=== PATIENT | male | born 1990 | race Caucasian/White ===

== ENCOUNTER → 2020-03-05 12:24 | Outpatient (CLI) | payer OTHER, SELFPAY ==
[2017-08-28 21:11] VITALS: BMI 23.1
== END ==
PROVIDERS: PCP Family Medicine; Referring Provider Family Medicine; Visit Provider Family Medicine
DX: N41.9 Inflammatory disease of prostate, unspecified (principal)
CPT/HCPCS: 87086

== ENCOUNTER 2020-08-25 07:29 | Emergency (ER) | payer OTHER, SELFPAY ==
[2020-08-25 07:30] VITALS: BP 119/100; PULSE 94; RESP 18; TEMP 36.6; O2SAT 100; BMI 27.3
--- NOTE | 2020-08-25 07:43 | CT_ITS ---
STUDY: CT ABDOMEN AND PELVIS WITHOUT CONTRAST REASON FOR EXAM: Male, 30 years old. RT FLANK PAIN RADIATION DOSAGE (If Supplied By Facility): CTDIvol = ( 6.63 ) mGy, DLP = ( 326.24 ) mGycm TECHNIQUE: Transaxial images were obtained from the dome of the diaphragm to the symphysis pubis without oral contrast, and without intravenous contrast. Sagittal and coronal images were reconstructed. Individualized dose optimization techniques were used for this CT. COMPARISON: None. FINDINGS: The visualized lung bases are unremarkable. The visualized portions of the heart are within normal limits. Normal liver. Normal gallbladder and extrahepatic biliary system. Normal spleen. Normal pancreas. Normal bilateral adrenal glands. Bilateral tiny nonobstructing renal stones. No hydronephrosis, ureteral stone, ureteral dilatation. Normal visualized stomach. Normal small intestine. Normal colon. The appendix is visualized and appears normal. Normal abdominal aorta. Normal inferior vena cava. Normal retroperitoneum. Normal urinary bladder. There is a small umbilical hernia containing fat. Normal osseous structures. CT/Abdomen/Pelvis without Cont IMPRESSION: Bilateral tiny nonobstructing renal stones. Electronically Signed: Junior Forrester MD at 8:13 EST Tel , Service support ,
--- NOTE | 2020-08-25 07:44 | ED.DCSUM_ITS ---
- ER Visit Summary Date of Service: 08/25/20 Chief Complaint: [Abdominal pain] History of Present Illness: The patient is a 30 M [presents to the emergency department complaint of sudden onset of abdominal pain that started around 6:30 AM this morning while driving to work. Patient states that he felt like the pain started at his bellybutton and radiated around the right side of his back. Once he got to work he felt like he needed have a bowel movement and went to the bathroom where he began feeling very sweaty and diaphoretic. Patient ended up having one episode of vomiting he thinks related to the pain. Pain was a 10 out of 10 however now it has backed off to about a 5 or 6 out of 10. Patient does have history of kidney stones 10 years ago. He denies any recent illness. Denies any fever. He does also relate that he has had some constipation issues off and on for the last week or so. He denies any change in medication or change in his diet. Patient denies blood in stool or black tarry stool. She has not had any prior abdominal surgeries.] Physical Examination: [HEENT-PERRLA, EOMI. Cranial nerves II through XII grossly intact. TMs clear. Mucous membranes moist. No adenopathy. Cardiovascular-regular rate and rhythm without murmur or ectopy Lungs-clear to auscultation, chest wall stable without crepitus or subcu emphysema Abdomen-normoactive bowel sounds, soft. Patient does have tenderness to palpation over the right lower quadrant. Patient has CVA tenderness on the right. There is no rebound, rigidity, or peritoneal signs. Extremities-intact ?4, normal range of motion, normal pulses, atraumatic] Test Results: [CBC with differential obtained was normal. Chemistries normal. Urinalysis had greater than 100 RBCs without signs of infection. CT flank showed bilateral small renal calculi without evidence of obstruction. Appendix was visualized and was normal.] Emergency Department Course and Treatment: [IV line established on arrival. Patient was given Toradol 30 mg IV. Patient had good pain relief with that and at this point his pain is minimal. Prior to discharge patient did ask me for a Covid test states that he will need one for work given that his girlfriend tested positive this morning. Patient has been asymptomatic.] Suspect patient may have passed a kidney stone given the blood in the urine. Treatment Plan: [We will order a send out PCR Covid test. Patient advised to use ibuprofen for discomfort and does not anything stronger for pain. Patient to follow-up with his primary care physician in 3 to 5 days. Patient to return if worsening pain, fever, vomiting, or condition should worsen anyway.] Disposition: [Discharged home in stable condition] Impression: [Flank pain-suspect passed kidney stone] This note was generated with [employer] dictation software. It may contain incorrect words, spelling, and punctuation that were not noted in review of the chart prior to signing ED Disposition - Plan for ED Patient: Referrals: Aspen Hair MD [Primary Care Provider] -
[2020-08-25 07:46] LABS: Bacteria 0 SEEN /hpf (None Seen); Squamous Epithelial Cells - UA 0 SEEN /hpf (0-5); White Blood Cells 0 SEEN /hpf (0-5)
[2020-08-25] MEDS: 0.9% Normal Saline 1,000 ML 125 ML IV (07:50)
[2020-08-25] MEDS: Ketorolac 30 MG/ML Syringe IV (07:50)
[2020-08-25 07:58] LABS: Color, Urine Yellow (Yellow); Glucose, Dipstick NEGATIVE (Normal); Ketone-Dipstick 5 mg/dl (Negative); Leukocyte Esterase-Dipstick 25 /ul (Negative); Mucous, Urine 2+ /hpf (<or=2+); Nitrite-Dipstick Negative (Negative); Occult Blood-Urine 250 /ul (Negative); Protein-Dipstick 30 mg/dl (Negative); Red Blood Cells-Urine > 100 SEEN /hpf (0-5); Urine Bilirubin Dipstick Negative (Negative); Urine Clarity Cloudy (Clear); Urine Urobilinogen 1 mg/dl (Normal)
[2020-08-25 08:00] LABS: Anion Gap 5 (5-15); BUN 12 mg/dL (7-18); BUN/Creat Ratio 12.5 RATIO (10-20); Calcium,Total 8.5 mg/dL (8.5-10.1); Chloride 106 mmol/L (98-107); Creatinine, Serum 0.96 mg/dL (0.70-1.30); EST Glomerular Filtration Rate 99 mL/min (>60); Est Glom Filt Rate - Afr Amer 119 mL/min (>60); Estimated Creatinine Clearance 106.15 ml/min; Glucose 131 mg/dL (74-106); Sodium Level 141 mmol/L (136-145)
[2020-08-25 08:02] LABS: Absolute Lymphocyte Count 2.08 X10^3/uL (0.83-4.51); Absolute Neutrophil Count 4.3 X10^3/uL (2.0-7.7); Basophil# 0.03 X10^3/uL; Basophil% 0.4 % (0-1); Eosinophil# 0.09 X10^3/uL; Eosinophils% 1.3 % (0-5); Hematocrit 47.4 % (40-54); Hemoglobin 16.3 g/dL (13.0-16.5); Lymphocyte # 2.08 X10^3/ul (4.0); Lymphocyte % 29.4 % (19-41); Mean Corp Hgb Conc 34.4 g/dL (32-36); Mean Corpuscular Hgb 31.8 pg (27.0-32.0); Mean Corpuscular Volume 92.4 fL (80-94); Mean Platelet Vol. 10.2 fl (6.2-12.0); Monocyte# 0.59 X10^3/uL; Monocyte% 8.3 % (0-10); NRBC Flagged by Analyzer 0 % (0-5); Neutrophil # 4.26 X10^3/uL (2.7-7.7); Neutrophil % 60.3 % (47-70); Platelet Count 176 K/mm3 (150-450); RBC Distribution Width CV 11.7 % (11.6-14.6); RBC Distribution Width SD 39.6 fl (35.1-43.9); Red Blood Count 5.13 M/mm3 (4.6-6.2); White Blood Count 7.1 K/mm3 (4.4-11.0)
--- NOTE | 2020-08-25 08:55 | ED.DEP ---
ED Disposition - Plan for ED Patient: Instructions: ED Flank Pain, Uncertain Cause Referrals: Aspen Hair MD [Primary Care Provider] - 3-5 Days
[2020-08-25 09:03] VITALS: BP 128/84; PULSE 66; RESP 16; O2SAT 100
--- NOTE | 2020-08-25 09:04 | ED.RN ---
IV DC'E, CATHETER INTACT, SMALL GAUZE DRESSING PLACED. DISCHARGE INSTRUCTIONS GIVEN TO AND REVIEWED WITH PATIENT, PATIENT DENIES QUESTIONS OR CONCERNS AND VOICES UNDERSTANDING OF DISCHARGE INSTRUCTIONS. PT AMBULATES OUT OF ROOM WITHOUT DIFFICULTY.
== END 2020-08-25 09:04 | disposition home or self-care (01) ==
LOC: ED 08:13
PROVIDERS: Emergency Provider Emergency Medicine; PCP Family Medicine
DX: R10.9 Unspecified abdominal pain (principal); F17.200 Nicotine dependence, unspecified, uncomplicated; Z87.442 Personal history of urinary calculi
CPT/HCPCS: 74176; 80048; 81001; 85025; 87635; 96374; 99283; J7030; U0005; A4216; U0003

== ENCOUNTER → 2025-02-03 | Outpatient (CLI) | payer OTHER, SELFPAY ==
--- NOTE | 2025-02-03 16:42 | RAD_ITS ---
PROCEDURE: SHOULDER MIN 2 VIEWS 02/03/2025 REASON FOR EXAM: RIGHT SHOULDER TECHNIQUE: SHOULDER MIN 2 VIEWS COMPARISON: None. FINDINGS: Normal glenohumeral articulation. Normal acromioclavicular joint. Normal acromion. Normal humeral head and visualized proximal humerus. Normal visualized scapula. There is no demonstrated soft tissue abnormality. Normal visualized pulmonary apex. RAD/Shoulder min 2 Views IMPRESSION: No evidence for acute abnormality. Reading [facility]
== END | disposition home or self-care (01) ==
LOC: MTRAD 16:42
PROVIDERS: PCP Family Medicine; Referring Provider Family Medicine; Visit Provider Family Medicine
DX: M25.511 Pain in right shoulder (principal)
CPT/HCPCS: 73030

== ENCOUNTER → 2025-02-14 | Outpatient (CLI) | payer OTHER, SELFPAY ==
--- OUTSIDE RECORDS SUMMARY | 2025-02-14 13:23 | XMS RPT_ITS | CCD ---
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 Name Role Phone Beatrice ROMO, Geovanny Primary Care Provider [phone] Beatrice ROMO, Geovanny Attending Provider [phone] Geovanny Barron MD Referring Provider [phone] Kirsten Lino Attending Unavailable Aspen Hair Referring Unavailable Aspen Hair Primary Care Unavailable Geovanny Barron Primary Care Unavailable Geovanny Barron Referring Unavailable Geovanny Barron Attending Unavailable Geovanny Barron Attending Unavailable Beatrice, Geovanny Primary Care Unavailable Geovanny Barron Referring Unavailable Problems Active Problems Problem Classification Problem Date Documented Da te Episodic/Chronic Other non-traumatic joint disorders (2 sources) Pain in right shoulder; Translations: [Pain in right shoulder] Onset: 02-09-2025 Episodic Other skin disorders (1 source) Cyst of scalp; Translations: [Follicular cyst of the skin and subcutaneous tissue, unspecified] 04-08-2024 Episodic Past or Other Problems Problem Classification Problem Date Documented Da te Episodic/Chronic Other skin disorders (1 source) Follicular cyst of the skin and subcutaneous tissue, unspecified; Translations: [Follicular cyst of the skin and subcutaneous tissue, unspecified] Onset: 05-14-2024 Episodic Superficial injury; contusion (1 source) Contusion of left middle finger without damage to nail, initial encounter; Translations: [Contusion of left middle finger without damage to nail, initial encounter] Onset: 05-04-2017 Episodic Results Test Name Value Interpretation Reference Range Facil ity Shoulder min 2 Viewson 02-03 Shoulder min 2 Views [facility] Services [address] [place], [place] [id number] Shoulder min 2 Views MR#: [id number] Acct: [id number] Name: HAILEY JARA Jr. Rep #: [id number] : 1990 M 34 From: Axel hartman MD PCP: Dr. Geovanny Barron MD Status: REG CLI Study: Shoulder min 2 Views Date of Exam: 02/03/25 Exam# [id number] Ordering Dr: Geovanny Barron MD PROCEDURE: SHOULDER MIN 2 VIEWS 02/03/2025 REASON FOR EXAM: RIGHT SHOULDER TECHNIQUE: SHOULDER MIN 2 VIEWS COMPARISON: None. FINDINGS: Normal glenohumeral articulation. Normal acromioclavicular joint. Normal acromion. Normal humeral head and visualized proximal humerus. Normal visualized scapula. There is no demonstrated soft tissue abnormality. Normal visualized pulmonary apex. RAD/Shoulder min 2 Views IMPRESSION: No evidence for acute abnormality. Reading Location: [place] [address] CC: Dr. 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 [place] [address] OFFICE VISIT Date of Service: 04/07/24 MR#: [id number] Acct: [id number] Name: HAILEY JARA JrShannon Rep #: [id number] : 1990 Provider: Dr. Kirsten dalal MD Age/Sex: 34/M Location: [facility] Status: Signed Intake Vital Signs 04/07/24 14:56 Height 5 ft 6 in Weight: 199 lb BMI 32.1 BP 133/87 H Blood Pressure Location Rt brachial Position Sitting Respiration 17 Pulse 73 Pulse Source Monitor Temp 96.5 F L Temp Source Temporal Pulse Oximetry (%) 97 Oxygen Delivery Method room air Intake Visit Reasons: SEBACEOUS CYST Chief Complaint: sebacous cyst Is patient in pain?: No Allergies No Known Allergies Allergy (Verified 04/07/24 14:58) Medications ???Medication ???Instructions ???Recorded ???Confirmed ???Type NK 08/28/17 04/07/24 History PFSH Social History (Updated 04/07/24 @ 14:56 by Nedra Quiroz) Smoking Status: Current every day smoker alcohol intake: current HPI HPI HPI: 34-year-old male presents due to scalp cyst. Patient states he has had this for a while however it has gotten larger and can be more bothersome if it happens to get bumped. Patient is interested in excision. ROS General General: No weight change, appetite, fatigue, colon cancer, breast cancer or weakness HEENT HEENT: No difficulty swallowing, eye injury, eye surgery, swollen glands or hoarseness Endo Endocrine: No thyroid disease, diabetes mellitus, thyroid cancer, Hair loss, heat intolerance or cold intolerance Skin Skin: No rash or changing moles Musc Musculoskeletal: No back problems, arthritis, rheumatoid arthritis, gout or joint pain Cardio Cardiovascular: No murmur, pacemaker, heart disease, atrial fibrillation, high blood pressure, heart attack, heart stent, palpitations, shortness of breat with exertion or chest pain Psych Psychiatric: No depression, anxiety or hearing voices Resp Respiratory: No shortness of breath, No sleep apnea, No cough, No COPD, No asthma, No emphysema and No wheezing Gastro Gastrointestinal: No abdominal pain, No nausea or vomiting, No diarrhea, No constipation, No blood in stool, No acid reflux, No hemorrhoids, No ulcers, No gallbladder problem and No black,tarry st ools [place] Hematologic: No blood thinners, No blood disorders, No bleeding, No anemia and No blood clots Neuro Neurologic: No system reviewed and no additional complaints, except as documented, No as per HPI, No abnormal gait, No abnormal hearing, No abnormal movements, No abnormal speech, No behavioral changes, No burning sensations, No confusion, No convulsions, No disequilibrium, No dizziness, No localized weakness, No frequent falls, No headache(s), No lack of coordination, No loss of vision, No memory loss, No numbness, No other visual disturbances, No radicular pain, No restless legs, No sensory deficit, No syncope, No tingling, No tremor(s), No weakness and No other Exam Const General: cooperative, healthy appearing, comfortable and no acute distress HENMT Other: Superior scalp cyst about 1.5 x 1.5 cm Neck Neck: normal visual inspection Resp Effort Inspection: normal respiratory effort Cardio Rate: regular rate GI Inspection: non-distended Palpation: soft, no guarding and nontender Skin General: no rashes or lesions noted Neuro General: patient oriented x3 Psych Affect: normal affect Office Procedures Excision and Linear Repair Procedure performed by: Kirsten Lino Informed consent given: Yes Consent signed: Yes Size of lesion (cm): 1 ( 1.5 x 1.5 x 1 cm-consistent with) Amount of lidocaine applied (mL): 3 Preparation: chlorhexidine Device used for excision: #15 blade Cutaneous deformities present: No Hemostasis: pressure ( and suture) Sutures used for cuticle layer: Yes Type: 3-0 ( horizontal 3-0 nylon mattress suture) Type: nylon Patient tolerated procedure: well Complications: No Procedure Time Out Time Out Informed consent given: Yes Consent signed: Yes Time out checklist: patient, procedure, site marked/identified, positioning of patient, supplies available, allergies confirmed and team agrees on procedure Time out staff in room: Yes Time out verified: Yes Time out date: 04/07/24 Time out time: 15:05 Assessment and Plan Assessment and Plan (1) Scalp cyst: Status: Acute Plan patient tolerated excision of scalp cyst well in office. Permanent horizontal mattress suture of 3- 0 nylon was placed for closure/help with hemostasis. Patient will return office about 7 days for removal. Patient was agreeable with plan. Kirsten Lino M.D. Pager: [phone] [facility] [address] [place] [address], [facility], [address] [facility] (more content not included)... Normal [facility] XR DIGIT 3V FRONTAL/LAT/OBL LTon 05-04-2017 XR DIGIT 3V FRONTAL/LAT/OBL LT * * *Final Report* * *DATE OF EXAM: May 04 2017 11:37AM MDX [id number] - XR DIGIT 3V FRONTAL/LAT/OBL LT / REASON: contusion of l middle finger * * * * Physician Interpretation * * * * PROCEDURE: Left 3rd fingerINDICATION: contusion of l middle finger.TECHNIQUE: XR DIGIT 3V FRONTAL/LAT/OBL LTCOMPARISON: NoneFINDINGS:No fractures or dislocations are seen. The bones, joint spaces and soft tissues are unremarkable.IMPRESSION: NegativeTranscriptionist : DORINDA Transcribe Date/Time: May 04 2017 11:39ADictated by : ROBERTA LUA MDThis examination was interpreted and the report reviewed and electronically signed by: ROBERTA LUA MD on May 04 2017 11:39AM [id number] Normal [facility] Encounters Encounter Date Encounter Type Care Provider Facility Start: 02-14-2025 ambulatory Geovanny Beatrice Facility:[facility] Start: 02-03-2025 End: 02-03-2025 ambulatory Geovanny Barron MD Work Phone: [facility] Work Phone: Start: 02-03-2025 End: 02-03-[address] Geovanny Barron MD -[facility] [place] Work Phone: Start: 02-03-2025 End: 02-03-2025 ambulatory [facility] Facility:[facility] Start: 04-07-2024 End: 04-07-2024 ambulatory [facility] Facility:[facility] Start: 05-10-2017 End: 05-10-2017 Ambulatory [facility] Start: 05-04-2017 End: 05-04-2017 Ambulatory [facility] Procedures Date Procedure Procedure Detail Performing Clinician Start: 02-03-2025 Plain X-ray of shoulder Geovanny Barron MD Work Phone: Payers Date Payer Category Payer Self-pay 2024 Self-pay [id number] Private Health Insurance [employer] [id number] Unknown ANTHEM [id number] Unknown [facility] [employer] PLAN [id number] Unknown [id number] Unknown [id number] Unknown [id number] Social History Date Type Detail Facility Start: 04-07-2024 Tobacco smoking stat us TXIS Smokes tobacco daily (finding) [facility] Start: 1990 Sex Assigned At Male [facility] Radiology Diagnostic study note 02-04-2025 Note Date & Type Note Facility 02-04-2025 Radiology Diagnostic study note [facility] Imaging Services [address] [address] Shoulder min 2 Views MR#: [id number] Acct: [id number] Name: HAILEY JARA Jr. Rep #: [id number] : 1990 M 34 From: Antwon Cardenas MD PCP: Dr. Geovanny Barron MD Status: REG CL I Study:Shoulder min 2 Views Date of Exam: 02/03/25 Exam# [id number] Ordering Dr: Emily Barron MD PROCEDURE: SHOULDER MIN 2 VIEWS 02/03/2025 REASON FOR EXAM: RIGHT SHOULDER TECHNIQUE: SHOULDER MIN 2 VIEWS COMPARISON: None. FINDINGS: Normal glenohumeral articulation. Normal acromioclavicular joint. Normal acromion. Normal humeral head and visualized proximal humerus. Normal visualized scapula. There is no demonstrated soft tissue abnormality. Normal visualized pulmonary apex. RAD/Shoulder min 2 Views IMPRESSION: No evidence for acute abnormality. Reading Location[facility] [address] CC: Dr. 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: Signed [facility] Evaluation note Note Date & Type Note Facility Evaluation note No assessment information availa ble [facility] Work Phone: Reason for referral (narrative) Note Date & Type Note Facility Reason for referral (narrative) No reason for referral information available [facility] Work Phone: Summary Purpose Family History No Family History Records FoundNo Family History Records FoundNo Family History Records Found Advance Directives No Advanced Directives Records Found Advance Directive Response Recorded Date/ Time Advance Directives No August 28, 2017 10:22pm Chief Complaint and Reason for Visit Chief Complaint Admit Date right shoulder February 03, 2025 4:40 pm Additional Source Comments (unrecognized sect ion and content) No Status Records FoundNo Status Records FoundNo Status Records Found INFORMATION SOURCE (unrecogn ized section and content) DATE CREATED AUTHOR 02/13/2018 [facility] DATE CREATED AUTHOR AUTHOR'S ORGANIZ ATION 02/13/2018 [facility] DATE CREATED AUTHOR AUTHOR'S ORGANIZ ATION 02/12/2025 [facility] Care Teams (unrecognized sec tion and content) Team Status: Active Member Role Status Dates Dr. Aspen Hair MD Family Provider Active Geovanny Barron MD Primary Care Provider Active Team Status: Inactive Member Role Status Dates Geovanny Barron MD Primary Care Provider Active St art: February 03, 2025 End: February 03, 2025 Geovanny Barron MD Attending Provider Active Start : February 03, 2025 End: February 03, 2025 Geovanny Barron MD Referring Provider Active Start : February 03, 2025 End: February 03, 2025 Goals (unrecognized section and content) Goals may be documented in a n alternate section FOR RECORDS PERTAINING TO PATIENTS WHO ARE OR HAVE BEEN ENROLLED IN A CHEMICAL DEPENDENCY/SUBSTANCEABUSE PROGRAM, SOME INFORMATION MAY BE OMITTED. This clinical summary was aggregated from multiple sources. Caution should be exercised in using it in the provision of clinical care. This summary normalizes information from multiple sources, and as a consequence, information in this document may materially change the coding, format and clinical context of patient data. In addition, data may be omitted in some cases. CLINICAL DECISIONS SHOULD BE BASED ON THE PRIMARY CLINICAL RECORDS. [employer] provides no warranty or guarantee of the accuracy or completeness of information in this document.
--- NOTE | 2025-02-14 14:00 | MRI_ITS ---
PROCEDURE: UPPER EXT JOINT ONLY(ROUTINE) 02/14/2025 REASON FOR EXAM: RIGHT SHOULDER PAIN TECHNIQUE: UPPER EXT JOINT ONLY(ROUTINE) Multiplanar and multisequence images were obtained without IV contrast administration. COMPARISON: COMPARISON: Right shoulder series of 02/03/2025 FINDINGS: Moderate right acromioclavicular joint degenerative changes are seen, with significant associated joint narrowing. No significant amount of fluid is seen within the subacromial/subdeltoid bursa. The right glenohumeral joint demonstrates no significant arthritic process. No joint effusion is evident. Subchondral cyst formation is seen at the right humeral head laterally. No acute osseous signal changes are seen. The infraspinatus tendon demonstrates mild tendinosis. Mild supraspinatus tendinosis is seen. The long head of the biceps tendon appears intact. MRI/Upper Ext Joint Only(Routine) IMPRESSION: 1. Moderate right acromioclavicular joint degenerative changes. 2. Mild supraspinatus and infraspinatus tendinosis. Reading Location: [place] [address]
== END | disposition home or self-care (01) ==
LOC: MRI 13:22
PROVIDERS: PCP Family Medicine; Referring Provider Family Medicine; Visit Provider Family Medicine
DX: M25.511 Pain in right shoulder (principal)
CPT/HCPCS: 73221